=== PATIENT | female | born 1945 | race American Indian/Alaskan Native ===

== ENCOUNTER 2018-02-04 08:42 | Day surgery (SDC) | payer MEDICARE ==
[2018-02-04] MEDS ORDERED: NACL 0.9% 500 ML 500 ML IV SCH (10:00)
[2018-02-04 10:36] LABS: Basophils % (Auto) 0.6 % (0.0-1.8); Eosinophils # (Auto) 0.1 K/mm3 (0.0-0.4); Eosinophils % (Auto) 1.3 % (0.0-4.3); Hematocrit 39.4 % (30.3-42.9); Hemoglobin 12.9 gm/dl (10.1-14.3); Lymphocytes # (Auto) 1.5 K/mm3 (1.2-5.4); Lymphocytes % (Auto) 23.3 % (13.4-35.0); Mean Corpuscular HGB Conc 33 % (30-34); Mean Corpuscular Hemoglobin 28 pg (28-32); Mean Corpuscular Volume 86 fl (79-97); Monocytes # (Auto) 0.5 K/mm3 (0.0-0.8); Platelet Count 327 K/mm3 (140-440); Red Blood Count 4.57 M/mm3 (3.65-5.03); Red Cell Distribution Width 13.7 % (13.2-15.2)
[2018-02-04 10:47] LABS: INR 0.87 (0.87-1.13)
[2018-02-04 10:48] LABS: Partial Thromboplastin Time 24.9 Sec. (24.2-36.6)
[2018-02-04 10:49] LABS: BUN/Creatinine Ratio 20; Blood Urea Nitrogen 16 mg/dL (7-17); Calcium 9.6 mg/dL (8.4-10.2); Hemolysis Index 24
[2018-02-04] MEDS ORDERED: HEPARIN/NS 5000 UNIT/500ML(CATH LAB) 1,000 ML IR ONE (13:23)
[2018-02-04] MEDS ORDERED: HEPARIN 10,000 UNITS/10 ML ONE (13:23)
[2018-02-04] MEDS ORDERED: XYLOCAINE 2% INFILTRATI ONE (13:23)
[2018-02-04] MEDS ORDERED: CALAN ONE (13:23)
[2018-02-04] MEDS ORDERED: NITROGLYCERIN SYRINGE 3 ML ONE (13:24)
[2018-02-04] MEDS ORDERED: VERSED ONE (13:24)
[2018-02-04] MEDS ORDERED: SUBLIMAZE ONE (13:24)
--- NOTE | 2018-02-04 14:28 | Cardiac Catherization Report ---
LEFT HEART CATHETERIZATION CLINICAL INFORMATION: A 72-year-old female with recurrent chest pain. Stress test shows mild inferior ischemia, is here for left heart catheterization. Was done in moderate sedation. A 0.5 mg of Versed and 25 mcg of fentanyl. Total sedation time was 15 minutes. Started at 13:33, finished at 13:48. Procedure was done via the right radial artery, sterile technique, local anesthesia. Left system engaged with a JL3.5 catheter. There is no left main, so separate LAD is a large caliber vessel that is patent from proximally to distally with moderate tortuosity. Diagonal 1 and diagonal 2 are small caliber vessels, patent. Circumflex is a large caliber vessel, dominant and AV groove is patent. OM1 and OM2 are medium caliber vessel with moderate tortuosity. Left posterior descending artery is a [id number] caliber vessel, was patent. RCA is a small nondominant vessel engaged with JR4. LV gram done in LATVIAN and HUITRON shows normal LV function. LVEDP 10 mmHg, LV is 130, aortic is 138/60. No significant gradient across the valve on pullback. 5-Danish catheter was taken over a guidewire, a 6-Danish radial sheath was discontinued. Radial band applied. No hematoma, no bleeding. SUMMARY: No left main separate ostium for the LAD, which a large caliber vessel, patent with moderate tortuosity. Circumflex large, dominant vessel, is patent with moderate tortuosity. OM1 and OM2 are patent. LPDA patent. RCA is a small nondominant vessel, patent and normal LV function. Noncardiac chest pain. JOB# [id number] SUPA/NTS
[2018-02-04 16:24] VITALS: BP 147/81
--- NOTE | 2018-02-05 09:01 | Short Stay Summary ---
<RADHA STEWART - Last Filed: 02/05/18 08:58> Short Stay Documentation Date of service: 02/04/18 - History H&P: obtained from office - Allergies and Medications Current Medications: Allergies latex Adverse Reaction (Unverified 02/04/18 08:43) Rash Penicillins Adverse Reaction (Unverified 02/04/18 08:43) Swelling Sulfa (Sulfonamide Antibiotics) Adverse Reaction (Unverified 02/04/18 08:43) Swelling Home Medications Medication Instructions Recorded Confirmed Last Taken Type ALBUTEROL Inhaler [ProAir HFA 2 puff INHALATION PRN PRN 02/04/18 02/04/18 10:55 History Inhaler] 2 puffs Aspirin EC [Aspirin Enteric Coated 81 mg PO DAILY 02/04/18 02/04/18 02/04/18 06: 30 History TAB] AtorvaSTATin [Lipitor] 10 mg PO HS 02/04/18 02/04/18 02/03/18 History 10mg Ergocalciferol [Vitamin D2] 50,000 tab PO QWEEK 02/04/18 02/04/18 02/03/18 History 75754 units Lactobacillus Combination No.8 1 tab PO DAILY 02/04/18 02/04/18 02/03/18 History [Adult Probiotic] 1 tab Magnesium Oxide 400 mg PO DAILY 02/04/18 02/04/18 02/03/18 History 400mg Metformin HCl 500 mg PO DAILY 02/04/18 02/04/18 02/02/18 History 500mg Everett-3 Fatty Acids/Fish Oil [Fish 1 tab PO DAILY 02/04/18 02/04/18 02/03/18 History Oil] 1 tab Thyroid,Pork [Stanley Thyroid] 15 mg PO DAILY 02/04/18 02/04/18 02/04/18 06:30 History 15mg Triamter/Hctz 37.5-25 mg 1 tab PO DAILY 02/04/18 02/04/18 02/04/18 06:30 History [Maxzide-25] Turmeric Root Extract [Turmeric] 1,000 mg PO DAILY 02/04/18 02/04/18 02/03/18 History 1 tab amLODIPine [Norvasc] 5 mg PO HS 02/04/18 02/04/18 02/03/18 History 5mg - Brief post op/procedure progress note Date of procedure: 02/04/18 Pre-op diagnosis: recurrent chest pain; abnormal stress test Post-op diagnosis: same Procedure: LHC - see dictated cath report Anesthesia: local Estimated blood loss: none Condition: stable - Disposition Condition at discharge: Stable Disposition: DC-01 TO HOME OR SELFCARE - Discharge Diagnoses (1) Non-cardiac chest pain Status: Acute (2) HTN (hypertension) Status: Chronic (3) Diabetes Status: Chronic (4) Hyperlipidemia Status: Chronic (5) Hypothyroidism Status: Chronic (6) History of TIA (transient ischemic attack) Status: Chronic Short Stay Discharge Plan Activity: advance as tolerated Diet: low cholesterol, low salt, diabetic Wound: open to air, keep clean and dry, per your surgeon's advice Follow up with: EVAN MOLINA MD [Primary Care Provider] - 7 Days Forms: [facility] PCI D/C Instructions <MANDY LI R - Last Filed: 02/05/18 11:23> Short Stay Documentation - Allergies and Medications Current Medications: Allergies latex Adverse Reaction (Unverified 02/04/18 08:43) Rash Penicillins Adverse Reaction (Unverified 02/04/18 08:43) Swelling Sulfa (Sulfonamide Antibiotics) Adverse Reaction (Unverified 02/04/18 08:43) Swelling Home Medications Medication Instructions Recorded Confirmed Last Taken Type ALBUTEROL Inhaler [ProAir HFA 2 puff INHALATION PRN PRN 02/04/18 02/04/18 10:55 History Inhaler] 2 puffs Aspirin EC [Aspirin Enteric Coated 81 mg PO DAILY 02/04/18 02/04/18 02/04/18 06: 30 History TAB] AtorvaSTATin [Lipitor] 10 mg PO HS 02/04/18 02/04/18 02/03/18 History 10mg Ergocalciferol [Vitamin D2] 50,000 tab PO QWEEK 02/04/18 02/04/18 02/03/18 History 60332 units Lactobacillus Combination No.8 1 tab PO DAILY 02/04/18 02/04/18 02/03/18 History [Adult Probiotic] 1 tab Magnesium Oxide 400 mg PO DAILY 02/04/18 02/04/18 02/03/18 History 400mg Metformin HCl 500 mg PO DAILY 02/04/18 02/04/18 02/02/18 History 500mg Everett-3 Fatty Acids/Fish Oil [Fish 1 tab PO DAILY 02/04/18 02/04/18 02/03/18 History Oil] 1 tab Thyroid,Pork [Stanley Thyroid] 15 mg PO DAILY 02/04/18 02/04/18 02/04/18 06:30 History 15mg Triamter/Hctz 37.5-25 mg 1 tab PO DAILY 02/04/18 02/04/18 02/04/18 06:30 History [Maxzide-25] Turmeric Root Extract [Turmeric] 1,000 mg PO DAILY 02/04/18 02/04/18 02/03/18 History 1 tab amLODIPine [Norvasc] 5 mg PO HS 02/04/18 02/04/18 02/03/18 History 5mg - Discharge Diagnoses (1) Positive cardiac stress test Status: Resolved (2) Diabetes Status: Chronic Qualifiers: Diabetes mellitus type: type 2 Diabetes mellitus prison insulin use: with prison use Diabetes mellitus complication status: without complication Qualified Code(s): E11.9 - Type 2 diabetes mellitus without complications; Z79.4 - retirement (current) use of insulin (3) HTN (hypertension) Status: Chronic Qualifiers: Hypertension type: essential hypertension Qualified Code(s): I10 - Essential (primary) hypertension (4) Hyperlipidemia Status: Chronic Qualifiers: Hyperlipidemia type: mixed hyperlipidemia Qualified Code(s): E78.2 - Mixed hyperlipidemia
== END 2018-02-04 17:15 | disposition home or self-care (01) ==
LOC: CATHLABREC 08:42
PROVIDERS: ATTEND Internal Medicine
DX: R07.89 Other chest pain (principal); E11.9 Type 2 diabetes mellitus without complications; I10 Essential (primary) hypertension; E78.5 Hyperlipidemia, unspecified; E03.9 Hypothyroidism, unspecified; Z86.73 Personal history of transient ischemic attack (TIA), and cerebral infarction without residual deficits; Z79.82 Long term (current) use of aspirin; Z88.0 Allergy status to penicillin; Z88.2 Allergy status to sulfonamides; Z91.040 Latex allergy status
CPT/HCPCS: 36415; 80048; 85025; 85610; 85730; 93005; 93010; 99156; J1644; J2250; J3010; J7040; 93458; C1894; Q9967